=== PATIENT | female | born 1940 | race Caucasian/White ===

== ENCOUNTER 2018-10-24 09:48 | Outpatient (REF) | payer MEDICARE, MEDICAID, SELFPAY ==
[2018-10-24 10:31] LABS: Abs Immature Grans 0.05 k/cumm (0.0-0.09); Absolute Basophil Count 0.06 k/cumm (0.0-0.2); Absolute Eosinophil Count 0.36 k/cumm (0.0-0.7); Absolute Monocyte Count 1.18 k/cumm (0.11-0.7); Absolute Neutrophil Count 6.36 k/cumm (1.2-6.7); Basophils % 0.6; Eosinophils % 3.8; HCT 25.1 % (36.0-46.0); Immature Grans % 0.5; Lymphocytes % 14.9; Mean Corp. HGB Concentration 31.9 g/dL (32.0-36.0); Mean Corpuscular Hemoglobin 27.4 pg (27.0-33.0); Mean Platelet Volume 11.3 fL (8.0-11.0); Monocytes % 12.5; Neutrophils % 67.7; Platelet Count 283 x1000/uL (130-400); RBC 2.92 m/cumm (4.00-5.20); RBC Distribution Width 15.5 % (11.7-14.6); White Blood Cell Count 9.41 k/cumm (4.4-10.8)
[2018-10-24 10:54] LABS: Anisocytosis 2+; Diff Comment RBC Morph Reviewed
[2018-10-24 10:55] LABS: Hypochromasia 1+; Poikilocytes 1+; Polychromasia Present
[2018-10-24 10:56] LABS: ALT 15 U/L (12-78); AST 11 U/L (15-37); Albumin 2.4 g/dL (3.4-5.0); Alkaline Phosphatase 187 U/L (46-116); Anion Gap 19.1 mmol/L (3-11); Bilirubin, Total 0.4 mg/dL (0.2-1.0); CO2 17.9 mmol/L (21.0-32.0); Calcium 6.5 mg/dL (8.5-10.1); Chloride 101 mmol/L (98-107); Estimated GFR 8.07 (mL/min/1.73m2); Glucose 156 mg/dL (70-100); Potassium 4.1 mmol/L (3.5-5.1); Sodium 138 mmol/L (136-145); Total Protein 5.9 g/dL (6.4-8.2)
[2018-10-24 11:09] LABS: BUN 110 mg/dL (7-18); CREATININE 5.16 mg/dL (0.55-1.02)
[2018-10-25 14:56] LABS: Lamotrigine 1.3 mcg/mL (2.5 - 15.0)
== END 2018-10-24 10:08 ==
LOC: LBN 09:48
PROVIDERS: PCP Family Medicine; Visit Provider Family Medicine
DX: E11.9 Type 2 diabetes mellitus without complications (principal); E03.9 Hypothyroidism, unspecified; N18.9 Chronic kidney disease, unspecified
CPT/HCPCS: 80053; 80175; 80177; 83036; 84443; 85025